=== PATIENT | male | born 1965 | race Caucasian/White ===

== ENCOUNTER 2016-12-24 15:06 | Emergency (ER) | payer MEDICAID ==
[~2016-12-24] VITALS: Ht 175.3 cm; Wt 85.0 kg
[~2016-12-24 15:06] MED LIST: ALBU0.63 NEB; ALBU8.5H3 INH; ALBU8.5H5 INH; AZIT250T PO; BUDE10.2 INH; BUDE10.22 IH; CEFD300C2 PO; CIPR500T3 PO; DEXA2TAB PO; DIAZ5TAB PO; FLUC200T PO; FLUT1BLS INH; FLUT1DIS3 INH; GABA100C PO; MELO-184 PO; METH500T97 PO; METO10TA82 PO; OMEP-110 PO; OMEP20CA9 PO; ONDA4TAB10 PO; OXYC5CAP4 PO; OXYC5TAB3 PO; PRED20TA PO; TAMS-11 PO; TIOT18CA INH; TIOT4MIS5 INH; TRAZ50TA18 PO; muscle relaxer; stomach med
[2016-12-24] MEDS ORDERED: ALBUTEROL/IPRATROPIUM 2.5MG/0.5MG, 3 ML ONE ×2 (15:24→16:34)
[2016-12-24] MEDS: ALBUTEROL/IPRATROPIUM 2.5MG/0.5MG, 3 ML NPPB SCH ×2 (16:10→16:33)
[2016-12-24] MEDS ORDERED: HYDROcodone/APAP 5/325 TABLET ONE (16:45)
[2016-12-24] MEDS ORDERED: KETOROLAC 30 MG/1 ML ONE (16:45)
[2016-12-24] MEDS ORDERED: HYDROcodone/APAP 5/325 TABLET PO ONE (17:00)
[2016-12-24] MEDS ORDERED: KETOROLAC 60 MG/2 ML IM ONE (17:00)
[2016-12-24 17:50] VITALS: BP 120/85
== END 2016-12-24 17:54 | disposition home or self-care (01) ==
LOC: ED 17:30
DX: S70.02XA Contusion of left hip, initial encounter (principal); S40.012A Contusion of left shoulder, initial encounter; W19.XXXA Unspecified fall, initial encounter; Y93.89 Activity, other specified; Y92.009 Unspecified place in unspecified non-institutional (private) residence as the place of occurrence of the external cause; Y99.9 Unspecified external cause status; J44.1 Chronic obstructive pulmonary disease with (acute) exacerbation; J45.909 Unspecified asthma, uncomplicated
CPT/HCPCS: 73030; 73502; 94640; 96374; 99284; J1885; J7512; J7620

== ENCOUNTER → 2017-04-28 | Outpatient (CLI) | payer MEDICAID ==
[~2017-04-28] MED LIST changes: -CEFD300C2 PO; +CEFD300C37 PO
== END | disposition home or self-care (01) ==
LOC: CFH 13:29
PROVIDERS: ATTEND Nurse Practitioner
DX: Z12.2 Encounter for screening for malignant neoplasm of respiratory organs (principal); M48.54XA Collapsed vertebra, not elsewhere classified, thoracic region, initial encounter for fracture; M51.34 Other intervertebral disc degeneration, thoracic region; R91.1 Solitary pulmonary nodule; J39.8 Other specified diseases of upper respiratory tract; Z87.891 Personal history of nicotine dependence
CPT/HCPCS: G0297

== ENCOUNTER 2017-07-29 12:26 | Emergency (ER) | payer MEDICAID ==
[~2017-07-29] VITALS: Ht 175.3 cm; Wt 91.0 kg
[~2017-07-29 12:26] MED LIST changes: -ALBU8.5H3 INH; +ALBU8.5H8 INH; -MELO-184 PO; +MELO15TA24 PO; +OXYC5CAP2 PO; -OXYC5CAP4 PO
[2017-07-29] MEDS ORDERED: SODIUM CHLORIDE FLUSH 10ML SYR IVF ONE (13:00)
[2017-07-29 13:16] LABS: HEMATOCRIT 47.9 % (39.2-51.8); HEMOGLOBIN 16.2 g/dL (13.7-18.0); WHITE BLOOD COUNT 8.9 x10^3/uL (3.4-10)
[2017-07-29 13:22] LABS: ASPARTATE AMINO TRANSFERASE 14 U/L (15-37); BLOOD UREA NITROGEN 15 mg/dL (7-18)
[2017-07-29 14:12] LABS: ACETAMINOPHEN < 2 mcg/mL (10-30)
[2017-07-29] MEDS ORDERED: NALOXONE 1 MG/ML, 2ML ONE (14:38)
[2017-07-29] MEDS ORDERED: morphine SULFATE 10 MG/ML, 1ML ONE (14:48)
[2017-07-29] MEDS ORDERED: ONDANSETRON 2MG/ML, 2ML ONE (14:48)
[2017-07-29] MEDS ORDERED: NALOXONE 1 MG/ML, 2ML IVPush ONE (15:00)
[2017-07-29 15:04] VITALS: BP 134/94
[2017-07-29] MEDS ORDERED: PROMETHAZINE 25 MG/ML, 1ML ONE (15:17)
[2017-07-29] MEDS ORDERED: LORazepam 2 MG/ML, 1ML ONE (15:18)
[2017-07-29] MEDS ORDERED: morphine SULFATE 10 MG/ML, 1ML IVPush ONE (15:30)
[2017-07-29] MEDS ORDERED: PROMETHAZINE 25 MG/ML, 1ML IM ONE (15:30)
[2017-07-29] MEDS ORDERED: ONDANSETRON 2MG/ML, 2ML IVPush ONE (15:30)
== END 2017-07-29 17:14 | disposition home or self-care (01) ==
LOC: ED 17:08
DX: S09.90XA Unspecified injury of head, initial encounter (principal); R41.0 Disorientation, unspecified; J44.9 Chronic obstructive pulmonary disease, unspecified; K21.9 Gastro-esophageal reflux disease without esophagitis; Z90.49 Acquired absence of other specified parts of digestive tract
CPT/HCPCS: 36415; 70450; 70486; 71010; 72125; 80053; 80307; 80329; 85025; 85610; 85730; 93005; 96372; 96374; 96375; 99285; J2270; J2310; J2405; J2550; G0479; G0480

== ENCOUNTER 2018-02-10 15:17 | Emergency (ER) | payer MEDICAID ==
[~2018-02-10] VITALS: Ht 175.3 cm; Wt 86.5 kg
[2018-02-10 15:27] VITALS: BP 137/75
[2018-02-10] MEDS ORDERED: LIDOCAINE-MPF 1%, 5ML INFIL ONE (16:00)
[2018-02-10] MEDS ORDERED: DIPH,PERTUSS(ACELL),TET VAC/PF 0.5 ML IM-VACC ONE ×2 (16:00→16:32)
[2018-02-10] MEDS ORDERED: BACITRACIN ZINC OINT 500U/GM, 0.9 GM ONE ×2 (16:51→16:54)
== END 2018-02-10 17:05 | disposition home or self-care (01) ==
LOC: ED 17:02
DX: S61.213A Laceration without foreign body of left middle finger without damage to nail, initial encounter (principal); J44.9 Chronic obstructive pulmonary disease, unspecified; Z90.49 Acquired absence of other specified parts of digestive tract; X58.XXXA Exposure to other specified factors, initial encounter; Y93.89 Activity, other specified; Y92.009 Unspecified place in unspecified non-institutional (private) residence as the place of occurrence of the external cause; Y99.8 Other external cause status
CPT/HCPCS: 90471; 90715

== ENCOUNTER 2018-07-19 13:47 | Emergency (ER) | payer MEDICAID ==
[~2018-07-19] VITALS: Ht 180.3 cm; Wt 72.9 kg
[~2018-07-19 13:47] MED LIST changes: +TRAZ-136 PO; -TRAZ50TA18 PO
[2018-07-19 14:40] LABS: BASOPHILS # (AUTO) 0.09 x10^3/uL (0-0.1); BASOPHILS % (AUTO) 1 % (0-1); EOSINOPHILS # (AUTO) 0.26 x10^3/uL (0-0.4); EOSINOPHILS % (AUTO) 2 % (1-7); LYMPHOCYTES # (AUTO) 3.37 x10^3/uL (1-3.4); LYMPHOCYTES % (AUTO) 29 % (22-44); MD NO; MEAN CORPUSCULAR HEMOGLOBIN 29.9 pg (27.5-34.5); MEAN CORPUSCULAR HGB CONC 33.7 g/dL (33.2-36.2); MEAN CORPUSCULAR VOLUME 88.7 fL (81-97); MEAN PLATELET VOLUME 7.8 fL (7.4-10.4); MONOCYTES # (AUTO) 0.65 x10^3/uL (0.2-0.8); MONOCYTES % (AUTO) 6 % (2-9); NEUTROPHILS # (AUTO) 7.18 x10^3/uL (1.8-6.8); NEUTROPHILS % (AUTO) 62 % (42-75); PLATELET COUNT 353 x10^3/uL (130-400); RED BLOOD COUNT 5.65 x10^6/uL (4.38-5.82); RED CELL DISTRIBUTION WIDTH 13.8 % (9.4-14.8)
[2018-07-19 14:45] LABS: ALBUMIN 3.6 g/dL (3.4-5.0); ANION GAP 4 mmol/L (5-15); CALCIUM 8.8 mg/dL (8.5-10.1); CHLORIDE 105 mmol/L (98-107); CREATININE 1.38 mg/dL (0.7-1.3)
[2018-07-19] MEDS ORDERED: CEFTRIAXONE 250 MG IM ONE (15:30)
[2018-07-19] MEDS ORDERED: AZITHROMYCIN 500 MG TABLET PO ONE (15:30)
[2018-07-19 15:32] VITALS: BP 156/118
[2018-07-19 16:01] LABS: CULTURE INDICATED? YES; MICROSCOPIC INDICATED
[2018-07-19] MEDS ORDERED: AZITHROMYCIN 500 MG TABLET ONE (16:06)
[2018-07-19] MEDS ORDERED: CEFTRIAXONE 250 MG ONE (16:07)
[2018-07-19] MEDS ORDERED: OXYcodone/APAP 10/325MG TABLET ONE (16:14)
[2018-07-19] MEDS ORDERED: OXYcodone/APAP 10/325MG TABLET PO ONE (16:30)
== END 2018-07-19 17:21 | disposition home or self-care (01) ==
LOC: ED 16:40
DX: N50.811 Right testicular pain (principal); N45.1 Epididymitis; N45.2 Orchitis; F17.200 Nicotine dependence, unspecified, uncomplicated; J44.9 Chronic obstructive pulmonary disease, unspecified; K21.9 Gastro-esophageal reflux disease without esophagitis
CPT/HCPCS: 36415; 76870; 80048; 81001; 82040; 85025; 87086; 96372; 99285; J0696

== ENCOUNTER 2018-09-08 20:26 | Inpatient (IN) | payer MEDICAID ==
[~2018-09-08] VITALS: Ht 175.3 cm; Wt 77.4 kg
[~2018-09-08 20:26] MED LIST changes: -TRAZ-136 PO; +TRAZ50TA66 PO
[2018-09-08] MEDS ORDERED: ALBUTEROL/IPRATROPIUM 2.5MG/0.5MG, 3 ML ONE ×2 (20:43→22:25)
[2018-09-08 21:12] LABS: BASOPHILS # (AUTO) 0.04 x10^3/uL (0-0.1); BASOPHILS % (AUTO) 0 % (0-1); EOSINOPHILS # (AUTO) 0.03 x10^3/uL (0-0.4); EOSINOPHILS % (AUTO) 0 % (1-7); LYMPHOCYTES # (AUTO) 3.34 x10^3/uL (1-3.4); LYMPHOCYTES % (AUTO) 22 % (22-44); MD NO; MEAN CORPUSCULAR HEMOGLOBIN 29.8 pg (27.5-34.5); MEAN CORPUSCULAR HGB CONC 33.9 g/dL (33.2-36.2); MEAN CORPUSCULAR VOLUME 88.2 fL (81-97); MEAN PLATELET VOLUME 7.8 fL (7.4-10.4); MONOCYTES # (AUTO) 1.11 x10^3/uL (0.2-0.8); MONOCYTES % (AUTO) 7 % (2-9); NEUTROPHILS # (AUTO) 10.84 x10^3/uL (1.8-6.8); NEUTROPHILS % (AUTO) 71 % (42-75); PLATELET COUNT 297 x10^3/uL (130-400); RED BLOOD COUNT 5.14 x10^6/uL (4.38-5.82); RED CELL DISTRIBUTION WIDTH 13.7 % (9.4-14.8)
[2018-09-08 21:21] LABS: ALBUMIN 3.4 g/dL (3.4-5.0); ANION GAP 9 mmol/L (5-15); CALCIUM 8.8 mg/dL (8.5-10.1); CHLORIDE 103 mmol/L (98-107); CREATININE 1.31 mg/dL (0.7-1.3)
[2018-09-08 21:25] LABS: TROPONIN I < 0.015 ng/mL (0.000-0.045)
[2018-09-08] MEDS ORDERED: ALBUTEROL SULFATE 2.5 MG/3 ML NPPB ONE (22:00)
[2018-09-08 22:17] LABS: RAPID INFLUENZA A Negative (Negative); RAPID INFLUENZA B Negative (Negative)
[2018-09-08] MEDS ORDERED: TAMS0.4C2 PO (23:13)
[2018-09-08] MEDS ORDERED: AZITHROMYCIN 500 MG TABLET PO ONE (23:30)
[2018-09-08] MEDS ORDERED: DOCUSATE 100 MG CAPSULE PO PRN (23:30)
[2018-09-08] MEDS ORDERED: NICOTINE 7 MG/24 HR PATCH.TD24 TD SCH (23:30)
[2018-09-08] MEDS ORDERED: ACETAMINOPHEN 325 MG TABLET PO PRN (23:30)
[2018-09-09] MEDS: HYDROcodone/APAP 5/325 TABLET PO PRN ×2 (00:02→12:23)
[2018-09-09] MEDS: HEPARIN 5,000 UNITS/ML, 1ML SQ SCH ×3 (00:03→15:30)
[2018-09-09 00:05] VITALS: BP_SYST 100; BP_SYST 101; BP_DIAS 62; BP_DIAS 68
[2018-09-09] MEDS ORDERED: ALBUTEROL/IPRATROPIUM 2.5MG/0.5MG, 3 ML NPPB SCH (02:00)
[2018-09-09] MEDS ORDERED: ALBUTEROL/IPRATROPIUM 2.5MG/0.5MG, 3 ML NPPB PRN (02:00)
[2018-09-09] MEDS: ALBUTEROL/IPRATROPIUM 2.5MG/0.5MG, 3 ML NPPB SCH ×6 (02:03→13:41)
[2018-09-09] MEDS ORDERED: ALBUTEROL/IPRATROPIUM 2.5MG/0.5MG, 3 ML IPPB SCH (03:00)
[2018-09-09] MEDS: SODIUM CHLORIDE 0.9% 1,000 ML IV SCH ×2 (03:28→12:23)
[2018-09-09 06:04] LABS: ALANINE AMINOTRANSFERASE 19 U/L (12-78); ALBUMIN 3.3 g/dL (3.4-5.0); ANION GAP 6 mmol/L (5-15); CALCIUM 8.7 mg/dL (8.5-10.1); CHLORIDE 106 mmol/L (98-107); CREATININE 1.37 mg/dL (0.7-1.3)
[2018-09-09 06:06] LABS: ALKALINE PHOSPHATASE 125 U/L (45-117); BILIRUBIN,TOTAL 0.6 mg/dL (0.2-1.0); TOTAL PROTEIN 7.2 g/dL (6.4-8.2)
[2018-09-09 06:12] LABS: BASOPHILS % (AUTO) 0 % (0-1); EOSINOPHILS % (AUTO) 0 % (1-7); LYMPHOCYTES # (AUTO) 0.75 x10^3/uL (1-3.4); LYMPHOCYTES % (AUTO) 7 % (22-44); MD NO; MEAN CORPUSCULAR HEMOGLOBIN 30.2 pg (27.5-34.5); MEAN CORPUSCULAR VOLUME 88.7 fL (81-97); MEAN PLATELET VOLUME 7.9 fL (7.4-10.4); MONOCYTES # (AUTO) 0.16 x10^3/uL (0.2-0.8); MONOCYTES % (AUTO) 1 % (2-9); NEUTROPHILS # (AUTO) 10.55 x10^3/uL (1.8-6.8); NEUTROPHILS % (AUTO) 92 % (42-75); PLATELET COUNT 283 x10^3/uL (130-400); RED BLOOD COUNT 5.06 x10^6/uL (4.38-5.82)
[2018-09-09] MEDS ORDERED: PNEUMOCOCCAL 23 VACCINE IM-VACC ONE (08:00)
[2018-09-09 08:07] VITALS: BP 107/58
[2018-09-09] MEDS ORDERED: TEMPLATE NON-FORMULARY MED. (Budesonide/Formoterol Fumarate (Symbicort 160-4.5 Mcg Inhaler INH SCH (09:00)
[2018-09-09] MEDS ORDERED: TAMSULOSIN 0.4 MG CAP.ER.24H PO SCH (09:00)
[2018-09-09] MEDS ORDERED: TEMPLATE NON-FORMULARY MED. (Tiotropium Bromide** (Spiriva**) 18 MCG) INH SCH (09:00)
[2018-09-09] MEDS ORDERED: AZITHROMYCIN 250 MG TABLET PO SCH (09:00)
[2018-09-09] MEDS ORDERED: BUDESONIDE 0.5 MG/2 ML INHA INH SCH (09:00)
[2018-09-09 14:26] VITALS: BP 100/63
[2018-09-09] MEDS ORDERED: AZIT250T89 PO (15:45)
[2018-09-09] MEDS ORDERED: PRED20TA PO (15:45)
[2018-09-09 16:15] VITALS: BP 106/60
== END 2018-09-09 16:55 | disposition home or self-care (01) | DRG 683 ==
LOC: ED 21:00 → EDIP 22:20 → 4NOR 23:09 → DCLOUNGE 09-09 16:34
PROVIDERS: ADMIT Family Medicine; ATTEND Family Medicine
DX: N17.9 Acute kidney failure, unspecified (principal); J44.1 Chronic obstructive pulmonary disease with (acute) exacerbation; F19.20 Other psychoactive substance dependence, uncomplicated; F17.210 Nicotine dependence, cigarettes, uncomplicated; G89.29 Other chronic pain; I10 Essential (primary) hypertension; I25.10 Atherosclerotic heart disease of native coronary artery without angina pectoris; K21.9 Gastro-esophageal reflux disease without esophagitis; M94.0 Chondrocostal junction syndrome [Tietze]; N40.0 Benign prostatic hyperplasia without lower urinary tract symptoms; Z82.49 Family history of ischemic heart disease and other diseases of the circulatory system; I25.2 Old myocardial infarction; Z90.49 Acquired absence of other specified parts of digestive tract; Z23 Encounter for immunization
CPT/HCPCS: 36415; 87400; 99285; J7620; J7626; 71045; 80048; 80053; 82040; 84484; 85025; 90656; 90732; 93005; 94640; G0378; J1644; J7030; J7512

== ENCOUNTER 2018-09-29 19:24 | Emergency (ER) | payer MEDICAID ==
[~2018-09-29 19:24] MED LIST changes: +AZIT250T89 PO; +TAMS0.4C2 PO
[2018-09-29] MEDS ORDERED: HYDROcodone/APAP 5/325 TABLET ONE (20:11)
[2018-09-29] MEDS: HYDROcodone/APAP 5/325 TABLET PO ONE (20:13)
[2018-09-29 21:43] VITALS: BP 113/78
== END 2018-09-29 21:45 | disposition home or self-care (01) ==
LOC: ED 20:04
DX: S52.511A Displaced fracture of right radial styloid process, initial encounter for closed fracture (principal); S52.571A Other intraarticular fracture of lower end of right radius, initial encounter for closed fracture; J44.9 Chronic obstructive pulmonary disease, unspecified; J45.909 Unspecified asthma, uncomplicated; F17.200 Nicotine dependence, unspecified, uncomplicated; F12.10 Cannabis abuse, uncomplicated; Z90.49 Acquired absence of other specified parts of digestive tract; Z87.438 Personal history of other diseases of male genital organs; W01.0XXA Fall on same level from slipping, tripping and stumbling without subsequent striking against object, initial encounter; Y93.89 Activity, other specified; Y92.89 Other specified places as the place of occurrence of the external cause; Y99.8 Other external cause status
CPT/HCPCS: 29125; 99283

== ENCOUNTER 2018-11-10 10:09 | Emergency (ER) | payer MEDICAID ==
[~2018-11-10] VITALS: Ht 175.3 cm; Wt 82.6 kg
[2018-11-10 10:35] VITALS: BP 120/89
[2018-11-10] MEDS ORDERED: KETOROLAC 30 MG/1 ML ONE (12:40)
[2018-11-10] MEDS ORDERED: HYDROcodone/APAP 5/325 TABLET ONE (12:40)
[2018-11-10] MEDS ORDERED: HYDROcodone/APAP 5/325 TABLET PO ONE (13:00)
[2018-11-10] MEDS ORDERED: KETOROLAC 30 MG/1 ML IM ONE (13:00)
== END 2018-11-10 14:54 | disposition home or self-care (01) ==
LOC: ED 12:19
DX: S62.101A Fracture of unspecified carpal bone, right wrist, initial encounter for closed fracture (principal); K21.9 Gastro-esophageal reflux disease without esophagitis; J44.9 Chronic obstructive pulmonary disease, unspecified; F17.210 Nicotine dependence, cigarettes, uncomplicated; W00.0XXA Fall on same level due to ice and snow, initial encounter; Y93.89 Activity, other specified; Y92.009 Unspecified place in unspecified non-institutional (private) residence as the place of occurrence of the external cause; Y99.8 Other external cause status
CPT/HCPCS: 73110; 96372; 99283; J1885

== ENCOUNTER 2019-01-19 12:34 | Emergency (ER) | payer MEDICAID ==
[~2019-01-19] VITALS: Ht 175.3 cm; Wt 85.0 kg
--- NOTE | 2019-01-19 13:14 | NUR ---
FIRST CONTACT WITH PT. PT C/O PT C/O RIGHT TESTICULAR PAIN AND SWELLING, RIGHT SIDED ABD PAIN AND BILATERAL LOWER BACK PAIN SINCE YESTERDAY. PT DENIES N/V/D AT THIS TIME. PT'S AOX4. RESPS EVEN AND UNLABORED. BP/SPO2 MONITORS IN PLACE. CALL LIGHT WITHIN REACH. AWAITING EDMD ASSESSMENT AT THIS TIME.
[2019-01-19] MEDS ORDERED: HYDROcodone/APAP 5/325 TABLET PO STA (13:19)
[2019-01-19] MEDS ORDERED: HYDROcodone/APAP 5/325 TABLET ONE (13:25)
--- NOTE | 2019-01-19 13:28 | NUR ---
PT MEDICATED PER EMAR. PT TOLERATED WELL.
--- NOTE | 2019-01-19 13:49 | NUR ---
PT TO US NOW.
[2019-01-19 14:01] LABS: MICROSCOPIC INDICATED
[2019-01-19 14:02] LABS: CULTURE INDICATED? YES
--- NOTE | 2019-01-19 14:03 | NUR ---
PT'S PAIN LEVEL IS 10/10 AT THIS TIME. EDMD NOTIFIED.
--- NOTE | 2019-01-19 14:15 | NUR ---
PT BACK TO ROOM FROM US NOW.
[2019-01-19] MEDS ORDERED: KETOROLAC 30 MG/1 ML ONE (14:45)
--- NOTE | 2019-01-19 14:51 | NUR ---
PT MEDICATED PER EMAR FOR PAIN. PT TOLERATED WELL.
--- NOTE | 2019-01-19 14:52 | NUR ---
REPORT GIVEN TO CAESAR LOPEZ.
[2019-01-19] MEDS ORDERED: KETOROLAC 30 MG/1 ML IM ONE (15:00)
[2019-01-19 15:21] VITALS: BP 94/59
== END 2019-01-19 15:23 | disposition home or self-care (01) ==
LOC: ED 15:12
DX: N45.1 Epididymitis (principal); N45.2 Orchitis; F17.200 Nicotine dependence, unspecified, uncomplicated
CPT/HCPCS: 76870; 81001; 87086; 87147; 96372; 99284; J1885